=== PATIENT | male | born 1940 | race Caucasian/White ===

== ENCOUNTER 2016-09-17 08:08 | Day surgery (SDC) | payer OTHER, MEDICARE ==
[~2016-09-17 08:08] MED LIST: LIDOCAINE W/ SODIUM BICARB 0.5 ML SYR ONE; Lactated Ringers 1,000 ML PRIMARY IV ONE
[2016-09-17] MEDS ORDERED: PROPOFOL 10 MG/1 ML (200 MG/20 ML) VIAL IV ONE (08:30)
[2016-09-17 11:52] VITALS: RESP 10; TEMP 97.1
== END 2016-09-17 11:45 | disposition home or self-care (01) ==
LOC: SDSC 08:08
PROVIDERS: ATTEND Ophthalmology
DX: H25.12 Age-related nuclear cataract, left eye (principal)
CPT/HCPCS: 66984; J2704; J7120